=== PATIENT | male | born 1990 ===

== ENCOUNTER → 2018-06-18 | Outpatient (REF) ==
--- NOTE | 2018-06-18 14:56 | REP ---
PARTIAL LUMBAR SPINE, THREE VIEWS: HISTORY: Degenerative disc disease. There is no acute fracture or subluxation. The L4-5 intervertebral disc is decreased in height consistent with disc degeneration. IMPRESSION: Degenerative change as described above. Electronically Signed by David Garcia MD 06/18/2018 03:04 P
== END ==
LOC: M SMT 13:01
PROVIDERS: ATTEND Internal Medicine
DX: M51.36 Other intervertebral disc degeneration, lumbar region (principal)